=== PATIENT | female | born 2005 | race Caucasian/White ===

== ENCOUNTER 2024-09-07 07:36 | Inpatient (IN) ==
[2024-09-07] MEDS ORDERED: LIDOCAINE 1% LOCAL 20 ML VIAL INFIL PRN (07:54)
[2024-09-07 08:25] LABS: Hematocrit (blood only) 36.9 % (37.0-47.0); Mean Corpuscular Hemoglobin 25.2 pg (25.0-34.0); Mean Corpuscular Hgb Conc 32.5 g/dL (32.0-36.0); Mean Corpuscular Volume 77.5 fL (80.0-100.0); Mean Platelet Volume 10.8 fL (9.4-12.4); Platelet Count 299 K/uL (130-400); RDW Coefficient of Variation 14.4 % (11.5-14.5); RDW Standard Deviation 39.7 fL (36.4-46.3); Red Blood Count 4.76 M/uL (4.20-5.40); White Blood Count 13.07 K/ul (4.8-10.8)
--- NOTE | 2024-09-07 08:26 | Labor Progress Brief Note ---
Date of Service September 07, 2024 Subjective Presents for planned postdates IOL. No OB c/o. Assessment & Plan (1) Post term over 40 weeks: Plan IOL with pitocin, possible AROM, possible epidural Admission and Anticipated Discharge Date Admission Date: September 07, 2024 Physical Exam Genitourinary: 4-5/80/-2/soft/ant EFW 6-7 FHT Cat 1 [place] quiet. Results & Data Vital Signs (Past 12 Hours) Vital Signs Temp Pulse Resp BP 09/07/24 07:47 98.6 F 16 09/07/24 07:44 105 H 126/92 Coding Level of Care Code None Diagnoses Post term over 40 weeks O48.0
--- NOTE | 2024-09-07 09:00 | History & Physical Report ---
Date of Service September 07, 2024 Assessment & Plan (1) Post term over 40 weeks: (2) Circumvallate placenta: (3) Encounter for supervision of normal intrauterine in multigravida, antepartum: Plan - category I Tracing - Normal Vital Signs -Pitocin given -Monitor Progress of labor -Doesn't desire epidural -Encourage deep breathing. Admission and Anticipated Discharge Date Admission Date: September 07, 2024 History of Present Illness Primary Care Provider: NO PCP Patient is a 19 Y O female currently at 40+3 WGA with an DENNY 09/04/24 as determined by LMP who is here for induction. Presence of contractions; movement present; no fluid loss; no bloody show External FHT and external uterine monitors used; category I tracing; normal FHT variability Had regular appointments with OB. Labs: Blood type: O Positive Antibody screen: Negative Hgb: 12(today) Hct: 36.9 (today) WBC: 13.07 (today) Plt: 299 (today) Rubella: Immune VDRL/RPR: Non reactive Gonorrhea: Negative Chlamydia: Negative HIV: Non reactive HbSAg:Non reactive GBS: Negative Allergies Allergy/AdvReac Type Severity Reaction Status Date / Time No Known Allergies Allergy Verified 09/06/24 13:56 Home Medications Medication Instructions Recorded Confirmed Type Vitamin 09/07/24 History Past Med/Surg History Problem List (Updated 09/07/24 @ 15:03 by Garret Be MD) Encounter for pre-operative examination Post term over 40 weeks Circumvallate placenta Atypical chest pain Encounter for supervision of normal intrauterine in multigravida, antepartum Encounter for anatomic survey Medical History (Updated 09/07/24 @ 15:03 by Garret Be MD) Palpitations Varicella vaccination Surgical History S/P cholecystectomy Family History Denies family history of Ovarian cancer Breast cancer Colorectal cancer Social History Smoking Status: Never smoker Tobacco Type: E-cigarettes / Vaping Cigarettes Per Day: Vapes; Do You Dip or Chew Tobacco: No; Hx Alcohol Use: No Hx Substance Use: No Preferred Language: Persian Communication Ability: Effective Chief Innovation Officer Required: No Beliefs That Will Affect Care: None marital status: marital status details: Camryn Millan (24) [phone] Current Living Situation: Spouse and Family Current Living Situation Comment: Lives with and son current occupational status: unemployed current occupation: Homemaker Other Information That Helps Us Care for You: No Feels Safe at Home: Yes Safety Concerns: Feels Safe At This Time Review of Systems Review of Systems: Denies fever, chills, sweats. Denies SOB, difficulty breathing, chest pain, palpitations, and chest pressure. Denies breast pain. Denies dysuria. Denies headache or changes in vision. Physical Exam Physical Exam: General: Alert and oriented. No acute distress CV: Regular rate and rhythm. No murmurs. Respiratory: CTA bilaterally. No rhonchi, wheezes, or crackles. No increased work of breathing. Abdomen: Gravid; Soft, nontender upon palpation, Cephalic presentation on [facility] Maneuver Pelvic: Dilated 4-5 cm; Effacement 80%; Station -2; Cervix: Soft per Dr. Barreto Lower extremities: No LE edema. No deep calf pain. Kortney's negative bilaterally. Results & Data Results & Data Vital Signs (Past 12 Hours) Vital Signs Temp Pulse Resp BP 09/07/24 07:47 37.0 C 16 09/07/24 07:44 105 H 126/92
[2024-09-07] MEDS: SODIUM CHLORIDE 0.9% 1,000 ML IV SCH (09:11)
[2024-09-07] MEDS: OXYTOCIN 30 UNITS/NSS 30 UNITS/500 ML BAG IV PRN ×2 (09:13→18:06)
--- NOTE | 2024-09-07 15:04 | Anesthesiology Consultation ---
Date of Service September 07, 2024 Assessment & Plan (1) Encounter for pre-operative examination: Chart Review Chart Review: Acceptable Risk for Labor Epidural History Height/Weight Height: 5 ft 9 in Weight: 107.048 kg Allergies Allergy/AdvReac Type Severity Reaction Status Date / Time No Known Allergies Allergy Verified 09/06/24 13:56 Medications Home Medications Medication Instructions Recorded Confirmed Last Taken Vitamin 09/07/24 1 Day Ago ~09/06/24 Active Medications Generic Name Dose Route Start Last Admin Trade Name Freq PRN Reason Stop Dose Admin Oxytocin 30 units in 500 mls @ 10 mls/hr 09/07/24 07:54 09/07/24 12:55 Pitocin 30 Units/Nss IV 09/09/24 07:53 0.6 units/hr .Q24H PRN 10 mls/hr Labor Induction/Augmentation Titration Protocol 0.6 UNITS/HR Sodium Chloride 1,000 mls @ 50 mls/hr 09/07/24 08:45 09/07/24 14:47 Nss IV 09/08/24 08:44 999 mls/hr .Q20H SHADI Infusion Past Medical History Medical History (Updated 09/07/24 @ 15:03 by Garret Be MD) Palpitations Varicella vaccination Past Family History Family History Denies family history of Ovarian cancer Breast cancer Colorectal cancer Past Surgical History Surgical History S/P cholecystectomy Social History Smoking Status: Never smoker Smoking cigarettes per day: Vapes Do You Dip or Chew Tobacco: No Hx Alcohol Use: No Hx Substance Use: No Physical Exam Vital Signs Last Vital Signs Temp 36.6 C 09/07/24 13:32 Pulse 96 H 09/07/24 14:29 Resp 16 09/07/24 07:47 BP 115/77 09/07/24 14:29 Testing Laboratory Results 09/07/24 08:05
[2024-09-07] MEDS: fentaNYL citrate PF 100 MCG/2 ML VIAL ONE (15:27)
[2024-09-07] MEDS ORDERED: NALOXONE HCL 0.4 MG/1 ML VIAL/CARP IV PRN (15:30)
[2024-09-07] MEDS ORDERED: ONDANSETRON INJ 2 MG/ML 2 ML VIAL IV PRN (15:30)
[2024-09-07] MEDS ORDERED: LIDOCAINE 2% MPF LOCAL 5 ML VIAL EPI PRN (15:30)
[2024-09-07] MEDS ORDERED: ePHEDrine sulfate 50 MG/ML AMP IV PRN (15:30)
[2024-09-07] MEDS ORDERED: fentaNYL citrate PF 100 MCG/2 ML VIAL EPI PRN (15:30)
[2024-09-07] MEDS ORDERED: ROPIVACAINE 0.5% PF 5 MG/ML 20 ML VIAL EPI PRN (15:30)
[2024-09-07] MEDS ORDERED: fentANYL 2 MCG/ML BUPIVacaine 0.125%-NSS 100ML BAG EPI PRN (15:30)
[2024-09-07] MEDS ORDERED: NALOXONE HCL 1 MG in SODIUM CHLORIDE 0.9% 1,000 ML IV PRN (15:30)
[2024-09-07] MEDS ORDERED: SODIUM CHLORIDE 0.9% PF INJ 10 ML VIAL EPI PRN (15:30)
[2024-09-07] MEDS ORDERED: BUPIVACAINE 0.25% PF 30 ML VIAL EPI PRN (15:30)
[2024-09-07] MEDS: fentANYL 2 MCG/ML BUPIVacaine 0.125%-NSS 100ML BAG ONE (15:31)
[2024-09-07] MEDS: LIDOCAINE 2%/EPINEPHRINE 1:200,000 20 ML PF ONE (15:33)
[2024-09-07] MEDS: BUPIVACAINE 0.25% PF 30 ML VIAL ONE (15:34)
[2024-09-07] MEDS: SODIUM CHLORIDE 0.9% PF INJ 10 ML VIAL ONE (16:06)
[2024-09-07] MEDS: SODIUM CHLORIDE 0.9% PF INJ 10 ML VIAL EPI STA (16:08)
[2024-09-07] MEDS: fentaNYL citrate PF 100 MCG/2 ML VIAL EPI STA (16:08)
[2024-09-07] MEDS: BUPIVACAINE 0.25% PF 30 ML VIAL EPI STA (16:08)
[2024-09-07] MEDS: LIDOCAINE 2%/EPINEPHRINE 1:200,000 20 ML PF EPI STA (16:08)
--- NOTE | 2024-09-07 17:13 | Delivery Summary ---
Vaginal Delivery Summary Date of Service September 07, 2024 Vaginal Delivery Summary DIAGNOSES: 1. Dinero intrauterine at 40w3d gestation. 2. Induction of Labor. 3. Group B Streptococcus Neg. PROCEDURE: Spontaneous vaginal delivery and repair of first degree laceration. SURGEON: Sunita Barreto MD. FENCE MACHINE OPERATOR: None. ESTIMATED BLOOD LOSS: 100 mL. COMPLICATIONS: None. PLACENTA: Spontaneous and intact with a 3-vessel cord. DISPOSITION: Stable to labor and delivery. DESCRIPTION: The patient pushed well and brought the head to in DOA position. The infant's head was allowed to deliver with contraction force and no further active pushing, with the perineum protected during this time. There was no nuchal cord. The left shoulder was anterior. The shoulders and body delivered without any difficulty, and the infant was placed on the maternal abdomen. It was vigorous and moving all extremities, and making respiratory efforts. The cord was doubly clamped by the MD and then cut by the FOB. The placenta delivered spontaneously and was noted to be intact and with a 3VC. The cervix, vagina and perineum were examined and were found to have a first degree labial lac which was oversewn with vicryl for good cosmesis. The fundus was firm and lochia minimal immediately after delivery. [facility] Vaginal Delivery Charge Vaginal Delivery Codes: 57117 global code for the antepartum, delivery, and post-
--- NOTE | 2024-09-07 17:25 | Anesthesia Procedure Note ---
Date of Service September 07, 2024 Anesthesia Post Epidural Note Vital Signs Vital Signs: Temp Pulse Resp BP Pulse Ox 36.6 C 91 H 16 129/80 99 09/07/24 13:32 09/07/24 16:55 09/07/24 07:47 09/07/24 16:55 09/07/24 16:40 Notes Mental Status: alert / awake / arousable and participated in evaluation Nausea / Vomiting: adequately controlled Pain: adequately controlled Airway Patency, RR, SpO2: stable & adequate BP & HR: stable & adequate Hydration State: stable & adequate Neuraxial Anesthesia: was administered and sensory block is resolving Anesthetic Complications: no major complications apparent Epidural: Removed without complications and With tip intact
[2024-09-07] MEDS ORDERED: OXYTOCIN 30 UNITS/NSS 30 UNITS/500 ML BAG IV PRN (17:30)
[2024-09-07] MEDS ORDERED: ACETAMINOPHEN 325 MG TAB PO PRN (17:30)
[2024-09-07] MEDS ORDERED: bisacodyL 10 MG SUPP PR PRN (17:30)
[2024-09-07] MEDS ORDERED: HYDROCORTISONE ACETATE 25 MG SUPP PR PRN (17:30)
[2024-09-07] MEDS ORDERED: oxyCODONE/ACETAMINOPHEN 5mg/325mg TAB PO PRN (17:30)
[2024-09-07] MEDS: ePHEDrine sulfate 50 MG/ML AMP ONE (18:40)
[2024-09-07] MEDS: BENZOCAINE 20% SPRY 85 APPLN/85 GM CAN EXT PRN (19:23)
[2024-09-07] MEDS: DIPHTHER/TETAN/PERTUS Vaccine (Tdap, Adol/Adult) 0.5mL IM ONE (19:23)
[2024-09-07] MEDS: DOCUSATE SODIUM 100 MG CAP PO SCH (21:00)
[2024-09-08 06:32] LABS: Hematocrit (blood only) 34.1 % (37.0-47.0); Mean Corpuscular Hemoglobin 25.1 pg (25.0-34.0); Mean Corpuscular Hgb Conc 32.3 g/dL (32.0-36.0); Mean Corpuscular Volume 77.7 fL (80.0-100.0); Mean Platelet Volume 11.2 fL (9.4-12.4); Platelet Count 302 K/uL (130-400); RDW Coefficient of Variation 14.2 % (11.5-14.5); RDW Standard Deviation 39.6 fL (36.4-46.3); Red Blood Count 4.39 M/uL (4.20-5.40); White Blood Count 19.59 K/ul (4.8-10.8)
--- NOTE | 2024-09-08 06:35 | Obstetrical Progress Note ---
Date of Service September 08, 2024 Assessment & Plan (1) Normal spontaneous vaginal delivery: Plan Both mom and baby doing well. Patient wants to go home in the evening. Discharge in the evening as per as protocol. Admission and Anticipated Discharge Date Admission Date: September 07, 2024 Supervising Physician Co-Signing Physician Notes I interviewed and examined the patient. Discussed with Dr. Ovalle and agree with findings and plan as documented in the note. Any exceptions or clarifications are listed here: [ ] Documented By: Sunita Barreto MD, FACOG Subjective #12 hrs following at 40+3WGA. No active complains Both mom and baby doing well. Pain: Mild Lochia: Minimal Diet: Regular Ob diet Bowel Movement: No BM yet Gas: Not aware of passing, but no abdominal distension Peeing: Normal, no bladder distension Ambulation: Normally Review of Systems Review of Systems: No SOB, chest pain, leg pain No dizziness, headache, palpitation No Blurring of vision , fever Physical Exam Physical Exam: General: Alert and oriented. No acute distress. CVS: S1 S2+ No murmurs, regular rhythm. Respiratory: CTA bilaterally. No rhonchi, wheezes, or crackles. No increased work of breathing. Abdomen: Bowel sound +. Soft, nontender Uterus: Fundus firm and palpable few cm below the umbilicus. Lower extremities: No LE edema. No deep calf pain. Results & Data Vital Signs (Past 12 Hours) Vital Signs Temp Pulse Pulse Resp BP BP 09/08/24 03:30 36.7 C 79 18 125/79 09/08/24 00:15 36.9 C 79 18 125/79 09/07/24 20:35 36.7 C 87 18 118/71 09/07/24 19:10 95 H 120/75 09/07/24 18:55 88 121/79 09/07/24 18:40 82 121/80
[2024-09-08] MEDS: IBUPROFEN 600 MG TAB PO PRN (08:32)
[2024-09-08] MEDS: PRENATAL VITAMIN 1 TAB PO SCH (08:32)
[2024-09-08] MEDS: bisacodyL 5 MG TABEC PO SCH (19:17)
[2024-09-08 19:20] VITALS: RESP 16
[2024-09-09 06:40] LABS: Hematocrit (blood only) 33.7 % (37.0-47.0); Hemoglobin 10.8 g/dl (12.0-16.0)
--- NOTE | 2024-09-09 06:59 | Obstetrical Progress Note ---
Date of Service September 09, 2024 Assessment & Plan (1) Normal spontaneous vaginal delivery: Plan Mom doing well. Baby may need phototherapy. May go home if baby ready to go home from Pediatrics side. Admission and Anticipated Discharge Date Admission Date: September 07, 2024 Supervising Physician Co-Signing Physician Notes Resident Physician Supervision Note: I interviewed and examined the patient. Discussed with Dr. Ovalle and agree with findings and plan as documented in the note. Any exceptions or clarifications are listed here: Doing well. Plan d/c today and nesting if baby continues to need to be under the lights. Documented By: Mitra Anguiano MD, FACOG Subjective #2 PPD following at 40+3WGA. No active complains Both mom and baby doing well. Pain: Mild Lochia: Minimal Diet: Regular Ob diet Bowel Movement: No BM yet Gas: Passing, No abdominal distension Peeing: Normal, no bladder distension Ambulation: Normally Review of Systems Review of Systems: No SOB, chest pain, leg pain No dizziness, headache, palpitation No Blurring of vision , fever Physical Exam Physical Exam: General: Alert and oriented. No acute distress. CVS: S1 S2+ No murmurs, regular rhythm. Respiratory: CTA bilaterally. No rhonchi, wheezes, or crackles. No increased work of breathing. Abdomen: Bowel sound +. Soft, nontender Uterus: Fundus firm and palpable few cm below the umbilicus. Lower extremities: No LE edema. No deep calf pain. Results & Data Vital Signs (Past 12 Hours) Vital Signs Temp Pulse Resp BP Pulse Ox O2 Del Method 09/09/24 00:27 36.7 C 81 16 128/73 99 Room Air 09/08/24 19:19 36.6 C 79 16 115/75 99 Room Air
[2024-09-09 07:50] VITALS: BP 130/85; TEMP 97.3; O2SAT 98
[2024-09-09 13:10] VITALS: PULSE 79
== END 2024-09-09 14:50 | disposition home or self-care (01) | DRG 807 ==
LOC: 4S1 07:36 → 4E2 19:59